=== PATIENT | male | born 1970 | race African-American/Black ===

== ENCOUNTER 2016-12-06 18:26 | Emergency (ER) | payer MEDICAID, OTHER ==
[~2016-12-06] VITALS: Ht 190.5 cm; Wt 137.0 kg
[2016-12-06] MEDS ORDERED: TdaP Vaccine 0.5ml Syr IM ONE (18:30)
[2016-12-06] MEDS ORDERED: Lidocaine 2% 20mg/ml/Epi 0.005mg/ml 20ml vial INJ ONE (18:30)
[2016-12-06] MEDS ORDERED: Bacitracin Oint UD TOPIC ONE (19:00)
--- NOTE | 2016-12-06 19:25 | Emergency Room Report ---
History of Present Illness General Chief Complaint: Animal Bite Source: Patient Present Illness HPI Patient is a 46-year-old male who presented after increased pain to his left upper extremity after animal bite. Patient reportedly was bitten by a pitbull patient reported having. No pulsatile bleeding. He denied numbness or weakness to his extremities. Injury occurred approximately one hour prior to arrival. Patient reports prior history of diabetes. Patient denies recent tetanus vaccine Allergies: Coded Allergies: No Known Allergies (Unverified , 12/06/16) Patient History Past Medical History: see triage record Reviewed Nursing Documentation: PMH: Agreed, PSxH: Agreed Nursing Documentation-PMH Past Medical History: No History, Except For Hx Hypertension: Yes Hx Diabetes: Yes Review of Systems All Other Systems: negative except mentioned in HPI Physical Exam Vital Signs Date Time Temp Pulse Resp B/P Pulse Ox O2 Delivery O2 Flow Rate FiO2 12/06/16 18:22 99.9 86 18 187/94 100 Room Air General Appearance: well appearing, no apparent distress, alert, GCS 15, non- toxic Head: normocephalic, atraumatic ENT: hearing grossly normal, normal voice Neck: full range of motion, supple Respiratory: no respiratory distress, speaking full sentences Cardiovascular #1: normal inspection Gastrointestinal: normal inspection Musculoskeletal: no calf tenderness, other - laceration to left upper arm above the elbow Neurologic: normal gait Psychiatric: mood/affect normal Skin: no rash Procedures Laceration/Wound Repair Laceration/Wound Repair : Consent: Emergent Wound Location: upper extremity Wound's Depth, Shape: into muscle, irregular, stellate Wound Length (cm): 4 Wound Explored: clean Irrigated w/ Saline (ccs): 150 Betadine Prep?: Yes Volume Anesthetic (ccs): 10 Wound Debrided: minimal Wound Repaired With: selvin - 9 Sterile Dressing Applied?: Yes Patient Tolerated: Well Complications: None Medical Decision Making Diagnostic Impression: Primary Impression: Laceration Additional Impression: Dog bite ER Course Patient presented for dog bite. Differential diagnosis included wasn't limited to fracture, arterial injury, neuropathy, crush injury among others. Patient's benign exam and does not appear to require any further imaging or laboratory testing at this time. The patient was given tetanus vaccine. Patient wound was irrigated with saline under high pressure. Wound was as explored. The patient was noted to have good distal perfusion as well as distal pulses. He had normal hand function distally. He was able to flex the biceps with full strength. He is able to pronate and supinate normally Last Vital Signs Date Time Temp Pulse Resp B/P Pulse Ox O2 Delivery O2 Flow Rate FiO2 12/06/16 18:22 99.9 86 18 187/94 100 Room Air Status: improved Disposition: HOME, SELF-CARE Condition: Stable Referrals: NOT CHOSEN IPA/,REFERRING (PCP) Agustin Lehman December 06, 2016 19:24
[2016-12-06] MEDS ORDERED: AUGMENTIN 875-1 EAC1 ORAL (19:26)
[2016-12-06] MEDS ORDERED: NORCO 5-325 TA1 EACH ORAL (19:26)
[2016-12-06] MEDS ORDERED: Augmentin 875mg Tab ORAL ONE (19:30)
[2016-12-06 19:40] VITALS: BP 187/94
[2016-12-06 19:42] VITALS: BP 187/94
== END 2016-12-06 19:42 | disposition home or self-care (01) ==
LOC: EDBD 18:26 → EMR 18:45
DX: S41.112A Laceration without foreign body of left upper arm, initial encounter (principal); W54.0XXA Bitten by dog, initial encounter; Y93.9 Activity, unspecified; Y99.9 Unspecified external cause status; I10 Essential (primary) hypertension; E11.9 Type 2 diabetes mellitus without complications; Z23 Encounter for immunization
CPT/HCPCS: 13121; 90471; 90715; 96372; 99284; Z7502